=== PATIENT | female | born 1970 | race Caucasian/White ===

== ENCOUNTER → 2020-06-29 13:06 | Outpatient (CLI) | payer BC, SELFPAY ==
[2020-06-29 14:24] LABS: Basophils # 0.1 K/mm3 (0-0.2); Basophils % 0.6 % (0.1-2.0); Eosinophils # 0.1 K/mm3 (0.0-0.4); Eosinophils % 1.6 % (0.1-12.0); Hematocrit 47.2 % (37.0-47.0); Hemoglobin 15.4 g/dL (12.2-16.2); Lymphocytes # 1.9 K/mm3 (0.7-4.5); Lymphocytes % 24.4 % (10-50); Mean Corpuscular HGB Conc 32.5 g/dL (31.8-35.4); Mean Corpuscular Hemoglobin 29.5 pg (27.0-31.2); Mean Corpuscular Volume 90.7 fl (81-99); Mean Platelet Volume 8.6 fl (7.4-10.4); Monocytes # 0.5 K/mm3 (0.1-1.0); Monocytes % 5.8 % (1.7-9.3); Neutrophils # 5.3 K/mm3 (1.8-7.8); Neutrophils % 67.5 % (37.0-80.0); Platelet Count 348 K/mm3 (142-424); Red Blood Count 5.21 M/mm3 (4.20-5.40); Red Cell Distribution Width 13.8 % (11.5-17.5); White Blood Count 7.8 K/mm3 (4.8-10.8)
[2020-06-29 15:23] LABS: Chloride 105 mmol/L (98-107)
[2020-06-29 15:24] LABS: Potassium 4.1 mmoL/L (3.5-5.1); Sodium 140 mmol/L (136-145)
[2020-06-29 15:26] LABS: Alanine Aminotransferase 17 U/L (12-78); Albumin Level 4.6 g/dl (3.5-5.0); Albumin/Globulin Ratio 1.2 (1.1-1.8); Alkaline Phosphatase 67 U/L (38-126); Anion Gap 11.1 mEq/L (5-15); Aspartate Amino Transferase 24 U/L (14-36); Blood Urea Nitrogen 16 mg/dl (7-17); Carbon Dioxide 28 mmol/L (22.0-30.0); Cholesterol 223 mg/dl (140-200); Estimated Glomerular Filt Rate 75 ml/min (>60); GFR (African American) 91 ML/MIN (>60); Globulin 3.8 g/dL (1.3-3.2); Total Protein,Serum 8.4 g/dl (6.3-8.2); Triglycerides 127 mg/dl (30-150); VLDL Cholesterol 25 mg/dL (0-40)
[2020-06-29 15:27] LABS: Calcium 9.8 mg/dl (8.4-10.2); Chol/HDL Ratio 4.1 (1-3.5); Glucose 81 mg/dl (74-100); HDL Cholesterol 55 mg/dl (40-60)
[2020-06-29 15:38] LABS: Direct LDL Cholesterol 134.33 mg/dL (100-129)
[2020-06-29 15:43] LABS: Free T4 (Free Thyroxine) 1.06 ng/dl (0.78-2.19)
[2020-06-29 15:44] LABS: 25-OH Vitamin D, Total 62.2 ng/mL (30-100)
[2020-06-29 15:57] LABS: Thyroid Stimulating Hormone 2.45 uIU/mL (0.465-4.68)
[2020-07-01 10:20] LABS: Triiodothyronine (T3) Free 2.5 pg/mL (2.0-4.4)
[2020-07-01 14:49] LABS: Insulin Level Total 15.2 uIU/mL (2.6-24.9)
== END ==
DX: E03.9 Hypothyroidism, unspecified (principal); E66.9 Obesity, unspecified; Z68.30 Body mass index [BMI] 30.0-30.9, adult
CPT/HCPCS: 36415; 80053; 80061; 82306; 83036; 83525; 84439; 84443; 84481; 85025

== ENCOUNTER 2023-11-07 10:58 | Outpatient (CLI) | payer BC, SELFPAY | END 2023-11-07 23:59 | disposition home or self-care (01) | LOC: RAD 10:58 | PROVIDERS: PCP Obstetrics & Gynecology; Visit Provider Obstetrics & Gynecology | DX: Z12.31 Encounter for screening mammogram for malignant neoplasm of breast (principal) | CPT/HCPCS: 77063; 77067 ==

== ENCOUNTER 2024-01-30 06:29 | Day surgery (SDC) | payer BC, SELFPAY ==
[2024-01-29 11:36] VITALS: BMI 31.6
[2024-01-30] VITALS (8 sets, daily range): BP systolic 111–122; BP diastolic 64–86; PULSE 75–91; RESP 16–18; TEMP 36.2–36.7; O2SAT 95–100
[2024-01-30] MEDS: LACTATED RINGERS 1000ML 1,000 ML 100 ML IV (06:52)
--- NOTE | 2024-01-30 07:25 | P.PNANES_ITS ---
[facility] Disclaimer: The information contained in this section may have been updated after the patient was seen, as this information can be updated by other users. Medical History Hypothyroidism Vasomotor symptoms due to menopause Surgical History History of dental surgery History of Family History Other Heart attack Hypertension Stroke Social History (Updated 01/30/24 @ 06:45 by Abril Garibay RN) Smoking Status: Never smoker alcohol intake: never substance use type: denies use current occupational status: employed Travel in the last 8 weeks: None caffeine: Yes [facility] Anesthesia Checklist Patient Identification Patient Identification: Arm Band, Family and Verbal (Name & ) Structural Data Admitted From: Home Planned Operative Procedure/s: Colonoscopy Consent for Planned Operative Procedure(s) Verified: Yes Verified Documents: Surgical Consent and History and Physical NPO Status Verified Time NPO: 01:00 Additional verifications Patient : No Anesthesia Reactions: No Cardiovascular Assessment Heart Sounds: S1 & S2 Pulse Rhythm: Irregular Peripheral Edema: No Airway Assessment Mallampati Score:: Class II C-Spine Mobility Assessed: Yes (FROM) TMJ Mobility Assessed: Yes Dentition: Good Dentition (Nothing loose per pt.) Neurological Assessment Level of Consciousness: Awake, Alert, Appropriate and Follows Commands Hx Seizures: No Numbness or tingling in extremities: No Anesthesia Plan Anesthesia Risk discussed: Yes Anesthesia Plan: Verified ASA Class: II Anesthesia Type: MAC
--- NOTE | 2024-01-30 08:08 | P.PCN_ITS ---
Procedure: Date: 01/30/24 Patient Date of :: 1970 Procedure Performed:: Colonoscopy Indications:: Screening Performing Provider:: Ino Bowden MD Referring Provider:: . Sedation:: Monitored anesthesia care Procedure:: After informed consent was obtained the patient was taken to the endoscopy suite. Sedation ensued after the patient was transferred to the left lateral decubitus position. Pulse, blood pressure, and oxygen saturation were monitored throughout the procedure. Digital rectal exam revealed no significant abnormality. The colonoscope was placed in position. The entire colon was eval uated. The colonoscope was carefully removed and the patient was transferred to recovery in stable condition. Please see findings and specimens below for detail. Findings:: Bowel preparation poor Fairly profound spasticity/lack of relaxation Significant tortuosity Specimens:: None Recommendations:: Repeat colonoscopy in 6-12 months with extended/alternate bowel preparation Complications:: Poor bowel preparation Estimated blood obtained (mL): 0 Colonoscopy Component Colonoscopy Component Was a colonoscopy performed during today's procedure?: Yes Recommended follow up colonoscopy of at least 10 years?: No If no, follow up colonoscopy recommended in ___ years?: (See above) Reason for not recommending >/= 10 yr follow-up interval?: (See above)
--- NOTE | 2024-01-30 08:13 | P.PNANES_ITS ---
[facility] Anesthesia Record Part I Anesthesia Record I Intake, IV Amount: 300 Hydration: Adequate Estimated blood loss (mL): 0 Urine output (mL): 0 Blood Products used (#): none Blood Pressure: 115/71 SaO2: 95 Pulse Rate: 88 Airway Patency: Patent Respiratory Rate: 16 Temperature: 97.6 F Patient is:: Drowsy and Stable Stable to PACU at:: 08:13
== END 2024-01-30 08:50 | disposition home or self-care (01) ==
PROVIDERS: PCP Internal Medicine; Visit Provider Surgery
PROC: 0DJD8ZZ Inspection of Lower Intestinal Tract, Via Natural or Artificial Opening Endoscopic (ICD-10-PCS; CPT 45378; principal; 2024-01-30 07:30)
DX: Z12.11 Encounter for screening for malignant neoplasm of colon (principal)
CPT/HCPCS: 45378; J2704; J7120

== ENCOUNTER 2024-09-12 07:37 | Outpatient (CLI) | payer BC, SELFPAY ==
[2024-09-12 08:57] LABS: Free T4 (Free Thyroxine) 0.96 ng/dl (0.78-2.19)
[2024-09-12 09:11] LABS: Thyroid Stimulating Hormone 2.54 uIU/mL (0.465-4.68)
[2024-09-13 03:36] LABS: Triiodothyronine (T3) Total 118 ng/dL (71-180)
== END 2024-09-12 23:59 | disposition home or self-care (01) ==
LOC: LAB 07:38
PROVIDERS: PCP Internal Medicine; Visit Provider Internal Medicine
DX: E03.9 Hypothyroidism, unspecified (principal)
CPT/HCPCS: 36415; 84439; 84443; 84480

== ENCOUNTER 2025-04-01 11:50 | Outpatient (CLI) | payer BC, SELFPAY ==
--- OUTSIDE RECORDS SUMMARY | 2025-04-01 11:52 | XMS_ITS | Encounter Summary ---
[facility] Address [address] [place] [address] Care Team Providers Care Water Tender Name Role Phone Deborah Pandya APRN Primary Care Provider + [phone] Reason for Visit * Reason Onset Date Comments Med Refill 05/05/2023 Encounter Details Date Type Department Care Team (Late st Contact Info) Description 05/05/2023 Refill [facility] [address] [place] [address] Monica Bernal MD [address] [place] [address] Social History Tobacco Use Types Packs/Day Years Used Date Smoking Tobacco: Never Smokeless Tobacco: Never Alcohol Use Standard Drinks/Week Comments Yes 0 (1 standard drink = 0.6 oz pur e alcohol) Rare occasions AUDIT-C Answer Date Recorded Q1: How often do you have a drink containing alc ohol? 2-4 times a month 08/10/2020 Average Number of Drinks Not on file 021 Frequency of Binge Drinking Not on file 07/21 Comments No Sex and Gender Information Value Date Recorded Sex Assigned at Female 08/21/2024 8:02 AM EST Legal Sex Female 11:04 AM EDT Gender Identity Not on file Sexual Orientation Not on file documented as of this encounter Plan of Treatment Not on file documented as of this encounter Visit Diagnoses Not on filedocumented in this encounter Care Teams Water Tender Relationship Specialty Start Date End Date Deborah Pandya APRN [address] [place] [id number] PCP - General Family Medicine 07/09/18 documented as of this encounter
--- OUTSIDE RECORDS SUMMARY | 2025-04-01 11:52 | XMS_ITS | Encounter Summary ---
[facility] Address [address] [place] [address] Care Team Providers Care Staff Design Engineer Name Role Phone Deborah Pandya APRN Primary Care Provider + [phone] Reason for Visit * Reason Comments Med Refill Encounter Details Date Type Department Care Team (Late st Contact Info) Description 07/15/2024 Refill [facility] [address] [place] [address] Monica Bernal MD [address] [place] [address] Social History Tobacco Use Types Packs/Day Years [...] on filedocumented in this encounter Care Teams Staff Design Engineer Relationship Specialty Start Date End Date Deborah Pandya APRN [address] [place] [id number] PCP - General Family Medicine 07/09/18 documented as of this encounter
--- OUTSIDE RECORDS SUMMARY | 2025-04-01 11:52 | XMS_ITS | Clinical Summary ---
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 Take one white capsule with Breakfast, and one white capsule with dinner. Active Cholecalciferol (VITAMIN D3) 5000 units capsule capsule Take 1 capsule by mouth Daily. Active Insulin Pen Needle 32G X 4 MM miscIndications:Ob esity, Class I, BMI 30-34.9 1 Each/1.7m2 Daily. 100 each 1 04/24/20 19 Active Additional Information Patient not taking.Reported on 07/24/2024 Multiple Vitamins-Minerals (MULTIVITAMIN WITH MINERALS) tablet tablet Take 1 tablet by mouth Daily. Active [place]-3 Fatty Acids (FISH OIL) 1000 MG capsule capsule Take by mouth Daily With Breakfast. Active levothyroxine (SYNTHROID, LEVOTHROID) 50 MCG tablet Take 1 tablet by mouth Daily. 30 tablet 07/04/19 24 Active estradiol (ESTRACE) 1 MG tablet Take 1 tablet by mouth Daily. Active Progesterone (PROMETRIUM) 100 MG capsule Take 1 capsule by mouth Daily. Active Thyroid (ARMOUR THYROID) 60 MG PO tabletIndications: Hypothyroidism, unspecified type Take 1 tablet by mouth Daily. Take daily at least one hour before or two hours after eating 30 tablet 11/08/19 24 Active ondansetron ODT (ZOFRAN-ODT) 8 MG disintegrating tabletIndications: Obesity (BMI 30-39.9) Place 1 tablet on the tongue Every 8 (Eight) Hours As Needed for Nausea or Vomiting. 30 tablet 1 12/18/2023 1:46 PM EDT 12/18/19 24 Active phentermine (ADIPEX-P) 37.5 MG tabletIndications: Overweight (BMI 25.0-29.9) Take 1 tablet by mouth Every Morning Before Breakfast. 14 tablet 08/22/19 25 Active Tirzepatide-Weight Management (Zepbound) 5 MG/0.5ML solution auto-injectorIndic ations:Overweight (BMI 25.0-29.9) Inject 0.5 mL under the skin into the appropriate area as directed 1 (One) Time Per Week. 2 mL 1 08/22/19 25 Active Active Problems Problem Noted Date Diagnosed Date Insulin resistance 07/08/2020 Overview (03/26/2024): KARINA IR 1.2, Insulin 5 (03/2024); Labs 06/2020: Fasting Insulin 15.2 combined with glucose of 81 gives a KARINA-IR score of 3.0 Assessment & Plan (06/26/2024 7:27 AM EST): Continue low carb diet, regular physical activity, and weight reduction of 10- 15%. Assessment & Plan (05/27/2024 7:49 AM EST): Continue ow carb diet, regular physical activity, and weight reduction of 10- 15%. Assessment & Plan (04/30/2024 7:20 AM EST): Continue to follow low carb diet, regular physical activity, and weight reduction of 10-15%. Metformin stopped last visit due to noncompliance. Continue Zepbound. Assessment & Plan (03/26/2024 9:01 AM EDT): Improving with weight reduction and Metformin. Continue current plan. She has not been taking metformin consistently. Stop, consider re initiation if indicated. Continue Zepbound. Assessment & Plan (02/23/2024 9:02 AM EDT): Low carb diet, regular physical activity, and weight reduction of 10-15%. Assessment & Plan (01/22/2024 8:31 AM EDT): Continue low carb diet, regular physical activity, and weight reduction of 10- 15%. Hypothyroidism 07/04/2018 Overview (03/26/2024): TSH 4.3 (03/2024); Rx levothyroxine & armour from [facility] Assessment & Plan (03/26/2024 9:00 AM EDT): Strongly encouraged to follow with primary care regarding this recent reading. She is taking [place] and Synthroid which was historically managed by Dr. Bernal. I advised on our initial visit that she should have primary care take over management of this. Will recheck TSH May 2024, if abnormal refer to pcp for management Assessment & Plan (12/18/2023 12:20 PM EDT): On [place] and Synthroid, TSH soon, advised this would be better managed by PCP. Further recommendation pending lab value. Assessment & Plan (11/08/2023 11:56 AM EDT): Check TSH/T4. Refill [place] thyroid, titrate if needed. Assessment & Plan (02/24/2023 1:49 PM EDT): Recheck TSH, T4, refill levothyroxine and [place] thyroid she is already on. Assessment & Plan (02/17/2021 9:54 AM EDT): Patient had labs drawn at external lab but they are not scanned into our system. She will request that these get sent to us JASE, in particular looking at thyroid panel Assessment & Plan (01/20/2021 8:58 AM EDT): --Continue medications as prescribed --Sent lab paperwork, needed for thyroid levels. States she had these done externally but they have not been seen in our office. She plans to fax them to us. Assessment & Plan (12/24/2020 9:40 AM EDT): Pt does not required refill at this time Assessment & Plan (11/19/2020 9:33 AM EDT): --Lab report sent via mail to be completed prior to next apt. Assessment & Plan (10/19/2020 9:57 AM EDT): --Plan to get thyroid labs at next appointment Hyperlipidemia 07/04/2018 Overview (07/24/2024): Ldl 120 (03/2024); LDL 131 (06/2022); Lab due September 2024 Assessment & Plan (08/21/2024 7:23 AM EST): Chronic elevated, improving with lifestyle changes and weight loss. Continue lifestyle changes. Lab due September. Assessment & Plan (07/24/2024 7:12 AM EST): Continue lifestyle changes, weight reduction, lab due September 2024 Assessment & Plan (06/26/2024 7:27 AM EST): Elevated, continue current plan with weight reduction, lifestyle modifications. Lab due September 2024 Assessment & Plan (04/30/2024 7:20 AM EST): Lipid abnormalities are improving with treatment Plan: Continue lifestyle changes, weight reduction. Weight Loss encouraged Patient Treatment Goals: LDL goal is under 100 Followup in 1 year. Assessment & Plan (03/26/2024 7:16 AM EDT): Lipid abnormalities are stable Plan: Continue lifestyle modifications, weight reduction. Weight Loss encouraged Patient Treatment Goals: LDL goal is under 100 Followup annually . Assessment & Plan (02/23/2024 9:20 AM EDT): Lipid abnormalities are stable Plan: Lifestyle modifications and weight reduction 5-15%. Weight Loss encouraged Patient Treatment Goals: LDL goal is under 100, Lipid prior to next visit at [facility] Followup in 6 months. Assessment & Plan (01/22/2024 8:30 AM EDT): Lipid abnormalities are stable Plan: Lifestyle modifications, weight reduction. Weight Loss encouraged Patient Treatment Goals: LDL goal is under 100 Followup when fasting . Assessment & Plan (12/18/2023 12:21 PM EDT): Lipid abnormalities are stable Plan: Lifestyle modifications, weight reduction. Counseled patient on lifestyle modifications to help control hyperlipidemia. Weight Loss encouraged Patient Treatment Goals: LDL goal is under 100 Followup when fasting prior to next scheduled visit . History of vitamin D deficiency 07/04/2018 Overview (12/14/2023): Vit D 46 (06/2022) Assessment & Plan (12/18/2023 12:20 PM EDT): Lab. Further recommendation pending result. Overweight (BMI 25.0-29.9) 07/04/2018 Overview (07/24/2024): Start weight 252 (2019); Weight 01/2021: 193 -- 1st Goal 189 (reached 05/2021); 2nd goal 184 (reached 03/2022); Treatment goal 179 lb (reached 06/2023) History of obesity BMI > 30 Current medication Rx [facility]: Zepbound ( start 12/18/23 ), P37 (start taper 03/2024- failed taper 07/2024), armor, levothyroxine (prescribed at [facility] but advised to have PCP follow) Rx history: P37 (taper started 03/2024); Wegovy (09/2022, stopped due to supply issue and SE diarrhea); (02/17) phentermine: 37.5 failed taper x 1 sympathomimetics (02/2020)(D/C'd 07/2022); 05/2020 Saxenda added Options: phendimetrazine 35 BID --tolerated well Rx: caution: Metformin (side effect, but does not remember what), Topamax (not efficacious, only took one week), DiuCaps (not efficacious) Comorbidity: Hyperlipidemia, insulin resistance Paper food journal Exercise: treadmill/gym/weights Pancreatitis: No Glaucoma: No Headaches: No HTN: No Heart palpitations: No Thyroid C cell cancer: No MEN syndrome personal or family hx: No Nephrolithiasis: No Gallbladder disease: No Diabetic Retinopathy: No Gastroparesis: No Small bowel obstruction: No Seizures: No Calories 7020-1390 Protein 95-118g Water 100 oz Assessment & Plan (08/21/2024 8:50 AM EST): Patient's (Body mass index is 29.23 kg/m .) indicates that they are overweight with health conditions that include impaired fasting glucose and dyslipidemias . Weight is improving with treatment. BMI is above average; BMI management plan is completed. We discussed portion control, increasing exercise, pharmacologic options including phentermine, zepbound, and an kermit- based approach such as Colingo Pal or Lose It. I have instructed the patient to continue with pursuit of medical weight loss as a part of this program. Patient does meet criteria for use of anorectics at this time as BMI > 27 with coexisting, hyperlipidemia, impaired fasting glucose, and is not at treatment goal. The current plan for this month includes: - 1 month f/u visit, she is down 3 lbs on zepbound, phentermine PRN - Continue current exercise efforts - Weight loss goal 4-6lbs this month - Continue to work on lifestyle behavioral changes - Adjust macronutrients as discussed. Bring food journal to next visit for review - continue zepbound 5 mg weekly injection for weight loss - restart phentermine 1/2 tablet 18.75 mg daily for appetite suppression given recent increased appetite. - target weight goal 179 lb, you are close to this goal As discussed continue good habits with exercise. Focus on protein intake. Log food and bring to next visit so we can fully evaluate macronutrients. Assessment & Plan (07/24/2024 8:52 AM EST): Patient's (Body mass index is 29.57 kg/m .) indicates that they are overweight with health conditions that include impaired fasting glucose and dyslipidemias . Weight is worsening. BMI is above average; BMI management plan is completed. We discussed portion control, increasing exercise, pharmacologic options including zepbound, has only been taking phentermine as needed, and an kermit-based approach such as Marvel or Lose It. I have instructed the patient to continue with pursuit of medical weight loss as a part of this program. Patient does meet criteria for use of anorectics at this time as BMI > 27 with coexisting and hyperlipidemia. The current plan for this month includes: - 1 month f/u visit, she is up 5 lbs on zepbound 5 mg, phentermine PRN - Continue current exercise efforts, get back to previous pattern/habits - Weight loss goal 4-6lbs this month - Continue to work on lifestyle behavioral changes - Adjust macronutrients as discussed. Bring food journal to next visit for review - continue zepbound 5 mg for weight loss - restart probiotic, continue over the counter gas x as needed, get back to drinking water - continue phentermine as needed at this time, she is taking about 1 time weekly at the end of week from time she injected, this is when hunger is highest - target goal 179 lb Assessment & Plan (06/26/2024 8:49 AM EST): Patient's (Body mass index is 28.74 kg/m .) indicates that they are overweight with health conditions that include impaired fasting glucose and dyslipidemias . Weight is improving with treatment. BMI above average . We discussed portion control, increasing exercise, pharmacologic options including zepbound and phentermine, and an kermit-based approach such as Marvel or Lose It. I have instructed the patient to continue with pursuit of medical weight loss as a part of this program. Patient does meet criteria for use of anorectics at this time as BMI > 27 with coexisting, hyperlipidemia, this medication is indicated for [facility] use for management of obesity, and reached target weight . The current plan for this month includes: - 1 month f/u visit, she is down 6 lbs on zepbound, PRN phentermine - Continue current exercise efforts - Continue to work on lifestyle behavioral changes - Adjust macronutrients as discussed. Bring food journal to next visit for review - Continue to prioritize protein, fiber, and hydration. - decrease zepbound back to 5 mg given her significant indigestion, GI symptoms. She felt better on the 5 mg dose - continue intermittent use of phentermine as needed during our transition to lower zepbound dose - restart probiotic - will need fasting labs with follow up visit - target weight goal reached today at 179 lbs. Great work! Congrats on reaching your target weight goal. Get back to higher protein intake with lower zepbound dosing. Continue great efforts with weight maintenance. Assessment & Plan (05/27/2024 8:25 AM EST): Patient's (Body mass index is 29.99 kg/m .) indicates that they are obese (BMI >30) with health conditions that include impaired fasting glucose and dyslipidemias . Weight is improving with treatment. BMI is above average; BMI management plan is completed. We discussed portion control, increasing exercise, pharmacologic options including zepbound, phentermine, and an kermit-based approach such as Marvel or Lose It. I have instructed the patient to continue with pursuit of medical weight loss as a part of this program. Patient does meet criteria for use of anorectics at this time as BMI >30 , body fat percentage >30%, hyperlipidemia, impaired fasting glucose, and is not at treatment goal. The current plan for this month includes: - 1 month f/u visit, she is down 3 lbs with zepbound, tapered from phentermine - Weight loss goal 4-6lbs this month - Adjust macronutrients as discussed. Bring food journal to next visit for review - Continue Zepbound 10 mg for weight loss - As discussed ok to proceed with Phentermine as needed at this time. If you continue to struggle and need to reincorporate advised to reach out for further instruction - Start over the counter gas-x for bloating, stop drinking through straw - treatment goal 179 lb Continue great efforts at exercise, reaching protein goal. Minimize sweets, carbs especially days surrounding holiday. Great work! Assessment & Plan (04/30/2024 8:46 AM EST): Patient's (Body mass index is 30.36 kg/m .) indicates that they are obese (BMI >30) with health conditions that include impaired fasting glucose and dyslipidemias . Weight is improving with treatment. BMI is above average; BMI management plan is completed. We discussed portion control, increasing exercise, pharmacologic options including phentermine and zepbound, and an kermit-based approach such as Marvel or Lose It. I have instructed the patient to continue with pursuit of medical weight loss as a part of this program. Patient does meet criteria for use of anorectics at this time as BMI >30 , hyperlipidemia, and is not at treatment goal. The current plan for this month includes: - 1 month f/u, she is down 6 lbs with zepbound, tapering phentermine - Continue to work on lifestyle behavioral changes - Continue nutrition focus - Continue to prioritize protein, fiber, and hydration. - Continue phentermine only as needed at this time, plan to fully discontinue. May reinitiate if indicated. - Continue Zepbound 10 mg for weight loss - Treatment goal 179 lb.You are very close to meeting this goal, 9 lbs away. Continue excellent efforts! Continue workouts, may increase calories/carbs on these days with focus on protein Assessment & Plan (03/26/2024 9:03 AM EDT): Patient's (Body mass index is 31.41 kg/m .) indicates that they are obese (BMI >30) with health conditions that include impaired fasting glucose and dyslipidemias . Weight is improving with treatment. BMI is above average; BMI management plan is completed. We discussed portion control, increasing exercise, pharmacologic options including zepbound, metformin and phentermine, and an kermit-based approach such as Colingo Pal or Lose It. I have instructed the patient to continue with pursuit of medical weight loss as a part of this program. Patient does meet criteria for use of anorectics at this time as BMI >30 , body fat percentage >30%, hyperlipidemia, impaired fasting glucose, and is not at treatment goal. The current plan for this month includes: - 1 month f/u visit and she is down 5 lbs on zepbound, phentermine and metformin - Continue great efforts with exercise - Continue to prioritize protein, fiber, and hydration. - Continue phentermine for weight loss, Lonnie VILLAR reviewed (start rapid taper, see below) - Continue Zepbound 10 for weight loss - start OTC gas x for bloating/gas - Stop Metformin as she has not been taking consistently - Start Phentermine taper, see instructions below, also copy given to patient - Treatment goal 172 lb - Treatment goal 172 lb [facility] Accelerated Wean (Patients will receive 28 pills) Weeks 1-2 (Take 2 days, Skip 1 day) Weeks 3-4 (Take 1 day, Skip 1 day) Weeks 5-6 (Take 1 day, Skip 2 days. This step will continue until all of your medication is gone.) Monday Week 1 Take Take Skip Take Take Skip Take Week 2 Take Skip Take Take Skip Take Take Week 3 Skip Take Skip Take Skip Take Skip Week 4 Take Skip Take Skip Take Skip Take Week 5 Skip Skip Take Skip Skip Take Skip Week 6 Skip Take Skip Skip Take Skip Skip Please Note, the accelerated wean is ONLY for weight loss medications such as Phentermine, Phendimetrazine, and Diethylpropion. Assessment & Plan (02/23/2024 9:22 AM EDT): Patient's (Body mass index is 32.14 kg/m .) indicates that they are obese (BMI >30) with health conditions that include dyslipidemias . Weight is improving with treatment. BMI is above average; BMI management plan is completed. We discussed portion control, increasing exercise, pharmacologic options including phentermine and zepbound, and an kermit-based approach such as Colingo Pal or Lose It. I have instructed the patient to continue with pursuit of medical weight loss as a part of this program. Patient does meet criteria for use of anorectics at this time as BMI >30 , body fat percentage >30%, hyperlipidemia, and is not at treatment goal. The current plan for this month includes: - 5 week f/u visit and she is down about 3 lbs with use of zepbound which was increased to 5 mg last visit - It is appropriate to continue anorectic medications as prescribed at this time - Continue to work on lifestyle behavioral changes - Adjust macronutrients as discussed. Bring food journal to next visit for review - Increase Zepbound to 7.5 mg weekly injection for weight loss, advised to report adverse side effects - Continue Phentermine 37.5 for appetite suppression, JIAN/Lonnie reviewed - Treatment goal 172 lb Assessment & Plan (01/22/2024 9:30 AM EDT): Patient's (Body mass index is 32.78 kg/m .) indicates that they are obese (BMI >30) with health conditions that include dyslipidemias . Weight is unchanged. BMI is above average; BMI management plan is completed. We discussed portion control, increasing exercise, and an kermit-based approach such as Colingo Pal or Lose It. I have instructed the patient to continue with pursuit of medical weight loss as a part of this program. Patient does meet criteria for use of anorectics at this time as BMI >30 , body fat percentage >30%, hyperlipidemia, and is not at treatment goal. The current plan for this month includes: - 1 month f/u visit and she is down about 5 lbs with use of phentermine and zepbound which was added last visit - Continue current exercise efforts, walking and consider incorporating strength training - Continue nutrition focus - Adjust macronutrients as discussed. Bring food journal to next visit for review - Continue Zepbound, will start 5 mg, advised to call office in 2 weeks to inform of side effects and at that time will consider sending the next months dose. She still needs labs, will get prior to next visit - Continue Phentermine 37.5, consider taper with higher dosing of zepbound - Treatment goal 272 lb Assessment & Plan (12/18/2023 12:19 PM EDT): Patient's (Body mass index is 33.65 kg/m .) indicates that they are obese (BMI >30) with health conditions that include dyslipidemias . Weight is worsening. BMI is above average; BMI management plan is completed. We discussed portion control, increasing exercise, and an kermit-based approach such as Marvel or Lose It. I have instructed the patient to continue with pursuit of medical weight loss as a part of this program. Patient does meet criteria for use of anorectics at this time as BMI >30 and hyperlipidemia. The current plan for this month includes: - 1 month f/u, patient has seen Dr. Bernal historically, she has gained about 5 lbs in the last month, on phentermine - Add resistance training - Weight loss goal 4-6lbs this month - Adjust macronutrients as discussed, focus on increasing fiber in diet. Bring food journal to next visit for review - Continue Phentermine 37.5 daily once UDS comes back, [facility] site down unable to review - Start Zepbound 2.5, sent to [facility] pharmacy, I/R/B/SE discussed and per AVS - UDS today, once back send P37 - Labs future at [facility] fasting prior to next visit - Treatment goal 148-272 lb Assessment & Plan (11/08/2023 11:53 AM EDT): Patient's (Body mass index is 32.77 kg/m .) indicates that they are obese (BMI >30) with health conditions that include none . Weight is improving with lifestyle modifications. BMI is above average; BMI management plan is completed. We discussed portion control and increasing exercise. I have instructed the patient to continue with pursuit of medical weight loss as a part of this program. Patient does meet criteria for use of anorectics at this time as BMI >30 , body fat percentage >30%, is not at treatment goal, and this medication is indicated for [employer] use for management of obesity. The current plan for this month includes: - Continue current exercise efforts - Weight loss goal 4-6lbs this month - Continue to work on lifestyle behavioral changes - Continue nutrition focus - Adjust macronutrients as discussed. Bring food journal to next visit for review - Continue to prioritize protein, fiber, and hydration. Continue metformin/phentermine. Will try Zepbound since Wegovy unavailable. Next month will have option of compounded semaglutide if interested. Try freezing her fish oil to decrease fish burps. Decrease carbs to 75 net or less. Good calories/protein. Assessment & Plan (09/13/2023 9:39 AM EDT): Patient's (Body mass index is 32.93 kg/m .) indicates that they are obese (BMI >30) with health conditions that include none . Weight is improving with lifestyle modifications. BMI is above average; BMI management plan is completed. We discussed portion control and increasing exercise. I have instructed the patient to continue with pursuit of medical weight loss as a part of this program. Patient does meet criteria for use of anorectics at this time as BMI >30 , body fat percentage >30%, is not at treatment goal, and this medication is indicated for [employer] use for management of obesity. The current plan for this month includes: - Adjust exercise as discussed - Weight loss goal 4-6lbs this month - Continue to work on lifestyle behavioral changes - Continue nutrition focus - Adjust macronutrients as discussed. Bring food journal to next visit for review - Continue to prioritize protein, fiber, and hydration. Still waiting on Wegovy. Try [facility]. Refill phentermine. Continue metformin. Add leg strength. Continue excellent effort with logging and macros. Assessment & Plan (08/09/2023 3:05 PM EST): Patient's (Body mass index is 33.73 kg/m .) indicates that they are obese (BMI >30) with health conditions that include dyslipidemias . Weight is improving with lifestyle modifications. BMI is above average; BMI management plan is completed. We discussed portion control and increasing exercise. I have instructed the patient to continue with pursuit of medical weight loss as a part of this program. Patient does meet criteria for use of anorectics at this time as BMI >30 , body fat percentage >30%, hyperlipidemia, is not at treatment goal, and this medication is indicated for [facility] use for management of obesity. The current plan for this month includes: - Adjust exercise as discussed - Weight loss goal 4-6lbs this month - Continue to work on lifestyle behavioral changes - Continue nutrition focus - Adjust macronutrients as discussed. Bring food journal to next visit for review - Continue to prioritize protein, fiber, and hydration. OFI: Continue to log. Strive for accuracy. Has Wegovy ordered, PA seems to be in order, but pharmacy doesn't have starting dose. Pt to f/u with them. Let me know if I can facilitate or send elsewhere. Refill phentermine. Continue metformin. While dealing with hip injury, focus on upper body and core. Assessment & Plan (07/07/2023 11:54 AM EST): Patient's (There is no height or weight on file to calculate BMI.) indicates that they are obese (BMI >30) with health conditions that include dyslipidemias . Weight is improving with lifestyle modifications. BMI is above average; BMI management plan is completed. We discussed portion control and increasing exercise. I have instructed the patient to continue with pursuit of medical weight loss as a part of this program. Patient does meet criteria for use of anorectics at this time as BMI >30 , body fat percentage >30%, hyperlipidemia, is not at treatment goal, and this medication is indicated for [facility] use for management of obesity. The current plan for this month includes: - Adjust exercise as discussed - Weight loss goal 4-6lbs this month - Continue to work on lifestyle behavioral changes - Continue nutrition focus - Adjust macronutrients as discussed. Bring food journal to next visit for review - Continue to prioritize protein, fiber, and hydration. Rx Wegovy to [facility]. She did well on Wegovy before, but had too many GI side effects at 2.4 dose. Cont metformin until gLP-1 available, and refill phentermine. Doing great with exercise, encouraged to log diligently to make sure getting enough protein and appropriate calorie deficit. Assessment & Plan (06/07/2023 10:21 AM EST): Patient's (There is no height or weight on file to calculate BMI.) indicates that they are obese (BMI >30) with health conditions that include dyslipidemias . Weight is improving with lifestyle modifications. BMI is above average; BMI management plan is completed. We discussed portion control and increasing exercise. I have instructed the patient to continue with pursuit of medical weight loss as a part of this program. Patient does meet criteria for use of anorectics at this time as BMI >30 , body fat percentage >30%, hypercholesterolemia, is not at treatment goal, and this medication is indicated for [facility] use for management of obesity. The current plan for this month includes: - Continue current exercise efforts - Weight loss goal 4-6lbs this month - Continue to work on lifestyle behavioral changes - Continue nutrition focus - Adjust macronutrients as discussed. Bring food journal to next visit for review - Continue to prioritize protein, fiber, and hydration. Had only 1 pound weight loss, despite excellent diet recall. Encourage 3-5 days per week cardio, add strength training. Saxenda wasn't available. Will rx Wegovy starting dose. Start metformin in the meantime for insulin resistance. Continue phentermine. Assessment & Plan (05/03/2023 9:39 AM EST): Patient's (There is no height or weight on file to calculate BMI.) indicates that they are obese (BMI >30) with health conditions that include dyslipidemias . Weight is improving with lifestyle modifications. BMI is above average; BMI management plan is completed. We discussed portion control and increasing exercise. I have instructed the patient to continue with pursuit of medical weight loss as a part of this program. Patient does meet criteria for use of anorectics at this time as BMI >30 , body fat percentage >30%, hyperlipidemia, is not at treatment goal, and this medication is indicated for [employer] use for management of obesity. The current plan for this month includes: - Continue current exercise efforts - Weight loss goal 4-6lbs this month - Continue to work on lifestyle behavioral changes - Continue nutrition focus - Adjust macronutrients as discussed. Bring food journal to next visit for review - Continue to prioritize protein, fiber, and hydration. Will attempt starting dose of Saxenda. Refill phentermine. If can't obtain Saxenda, could add metformin. Assessment & Plan (03/31/2023 3:48 PM EDT): Patient's (There is no height or weight on file to calculate BMI.) indicates that they are obese (BMI >30) with health conditions that include dyslipidemias . Weight is improving with lifestyle modifications. BMI is above average; BMI management plan is completed. We discussed portion control and increasing exercise. I have instructed the patient to continue with pursuit of medical weight loss as a part of this program. Patient does meet criteria for use of anorectics at this time as BMI > 27 with coexisting, BMI >30 , and this medication is indicated for [facility] use for management of obesity. The current plan for this month includes: - Continue current exercise efforts - Weight loss goal 4-6lbs this month - Continue to work on lifestyle behavioral changes - Continue nutrition focus - Adjust macronutrients as discussed. Bring food journal to next visit for review - Continue to prioritize protein, fiber, and hydration. Doing well. Hopefully can restart Saxenda May or June when available. Refill phentermine. Assessment & Plan (02/24/2023 1:46 PM EDT): Patient's (There is no height or weight on file to calculate BMI.) indicates that they are obese (BMI >30) with health conditions that include dyslipidemias . Weight is improving with lifestyle modifications. BMI is above average; BMI management plan is completed. We discussed portion control and increasing exercise. I have instructed the patient to continue with pursuit of medical weight loss as a part of this program. Patient does meet criteria for use of anorectics at this time as BMI >30 , body fat percentage >30%, dysmetabolic syndrome, is not at treatment goal, and this medication is indicated for [facility] use for management of obesity. Continue nutritional focus and work towards new exercise FITT goal of: The current plan for this month includes: - Continue current exercise efforts - It is appropriate to continue anorectic medications as prescribed at this time - Weight loss goal 4-6lbs this month - Continue to work on lifestyle behavioral changes - Continue nutrition focus - Adjust macronutrients as discussed. Bring food journal to next visit for review - Continue to prioritize protein, fiber, and hydration. When I listened to her diet recall, it seems that protein intake is too low. Recommend watch protein closely on baritastic. Increase to 100 g/day. Strength training is good. Continue phentermine. Continue to hold GLP-1 (high dose was very poorly tolerated). Assessment & Plan (01/27/2023 9:52 AM EDT): Patient's (Body mass index is 33.64 kg/m .) indicates that they are obese (BMI >30) with health conditions that include dyslipidemias . Weight is worsening. BMI is above average; BMI management plan is completed. We discussed portion control and increasing exercise. Very bad reaction to 2.4 dose of Wegovy. Will hold completely for now. I would expect adverse effects of gastroparesis to wear off soon as Wegovy clears the system. One consideration is the formation of a bezoar, which may be explanation if her symptoms continue past 2 more weeks. Would dx with EGD. Possible GES if no bezoar. Would hold GLP-1 completely for now until symptoms 100% resolve., when restarting consider Saxenda after May. Will restart phentermine. I have advised her not to take it until hunger resolves. I think poor weight loss is from low protein/calories. Advise log every day on Baritastic to make sure macros/calories are appropriate. [id number] per day, 100 g/day protein. Assessment & Plan (12/28/2022 8:41 AM EDT): Patient's (Body mass index is 33.41 kg/m .) indicates that they are obese (BMI >30) with health conditions that include dyslipidemias . Weight is improving with lifestyle modifications. BMI is above average; BMI management plan is completed. We discussed portion control and increasing exercise. I have instructed the patient to continue with pursuit of medical weight loss as a part of this program. Patient does meet criteria for use of anorectics at this time as BMI >30 , hypercholesterolemia, dysmetabolic syndrome, and is not at treatment goal. Continue nutritional focus and work towards new exercise FITT goal of: The current plan for this month includes: adjust exercise as discussed, it is appropriate to continue anorectic medications as prescribed at this time, weight loss goal 4-6lbs this month, and continue to work on lifestyle behavioral changes Strongly encourage to start logging on baritastic. Since her weight has stalled, I think we are missing some variables to help her achieve her goals. Suspect protein is still low. Looking at 3 months ago BMR, it was ~1600 Calorie goal [id number] per day. Protein 90-100 g/day. Limits net carbs to 75 or less. 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 Refill Wegovy 2.4. Assessment & Plan (11/28/2022 4:05 PM EDT): Patient's (Body mass index is 33.09 kg/m .) indicates that they are obese (BMI >30) with health conditions that include dyslipidemias . Weight is unchanged. BMI is above average; BMI management plan is completed. We discussed portion control and increasing exercise. I have instructed the patient to continue with pursuit of medical weight loss as a part of this program. Patient does meet criteria for use of anorectics at this time as BMI >30 and hyperlipidemia. Continue nutritional focus and strength/cardio 3x per week. The current plan for this month includes: continue current exercise efforts, it is appropriate to continue anorectic medications as prescribed at this time, weight loss goal 4-6lbs this month, continue to work on lifestyle behavioral changes, and continue nutrition focus. Hair loss, no weight loss, and low protein on diet recall. Increase protein to 80-100. Ok to use paper diet log, but make a column for protein. At next office visit, it will be good to see what is fat percentage on our scale. We discussed the importance of protein in maintaining lean muscle mass. Increase Wegovy dose to 2.4 mg per week. Assessment & Plan (10/24/2022 2:17 PM EDT): Patient's (Body mass index is 33.09 kg/m .) indicates that they are obese (BMI >30) with health conditions that include dyslipidemias and insulin resistance . Weight is improving with treatment. BMI is above average; BMI management plan is completed. We discussed low calorie, low carb based diet program, portion control, increasing exercise, pharmacologic options including Wegovy and an kermit-based approach such as Colingo Pal or Lose It. --Increase Wegovy form 1mg to 1.7 --Continue to increase walking --Continue psyllium husk Assessment & Plan (09/26/2022 12:12 PM EDT): Patient's (Body mass index is 34.22 kg/m .) indicates that they are overweight with health conditions that include dyslipidemias and insulin resistance . Weight is worsening. BMI is is above average; BMI management plan is completed. We discussed low calorie, low carb based diet program, portion control, increasing exercise, pharmacologic options including wegovy and an kermit-based approach such as Colingo Pal or Lose It. -- Switch Saxenda to Wegovy. Starting this at 1mg Prior approval sent for Wegovy and prescription sent in. Advised that she these medicines should not be taken at the same time. Is getting Wegovy she can take Saxenda the last day prior to taking Wegovy. Advised that this is a once a week injection versus daily. -- Discussed the potential side effects of abruptly starting phentermine and advised to titrate as instructed in the future if ever stopping this medication again. -- Reviewed labs completed in June. Discussed restarting psyllium husk and advised this could be helpful for both weight loss and for her mildly elevated hyperlipidemia. Advised to always take with a full glass of water at minimum 8 ounces preferably more. Assessment & Plan (07/18/2022 2:24 PM EST): Patient's (Body mass index is 29.21 kg/m .) indicates that they are overweight with health conditions that include dyslipidemias and insulin resistance . Weight is improving with treatment. BMI is is above average; BMI management plan is completed. We discussed low calorie, low carb based diet program, portion control, increasing exercise, pharmacologic options including phentermine and Saxenda and an kermit-based approach such as Colingo Pal or Lose It. -- This is a follow-up visit and patient is around the same weight as she was approximately a month ago. --Continue Saxenda and phentermine. Refill sent in. --Labs were reviewed. Only abnormal was mildly elevated cholesterol levels. Discussed adding psyllium husk supplementation. Discussed titrating up from 2 tablets in the morning and 2 tablets in the evening (taken with a full glass of water) up to a maximum dose of 5 tablets in the morning and 5 tablets in the evening. An excellent primary care provider discuss the lab results. Message sent to staff to send a GameTube message with the lab results. --Goal to be into the 170s by next visit. Goal of 2-4lbs this month. Assessment & Plan (06/16/2022 8:58 AM EST): Patient's (Body mass index is 29.12 kg/m .) indicates that they are overweight with health conditions that include dyslipidemias and insulin resistance . Weight is improving with treatment. BMI is is above average; BMI management plan is completed. We discussed low calorie, low carb based diet program, portion control, increasing exercise, pharmacologic options including phentermine and Saxenda and an kermit-based approach such as Colingo Pal or Lose It. --This is a follow up visit and she is down 2.6lb since last office visit --Continue Saxenda and phentermine refill sent in. Refill on thyroid medications. -- Fasting labs ordered. She plans to get these fasting done at the [facility] facility of her choice. -- Refocus after the holidays in particular on her exercise, water and food choices. Currently is writing down her foods. Discussed the option of using the kermit [email or web address]. If she is interested in this she can download and bring to next office visit for us to set up. Perfectly okay to continue paper charting as well if that easier for her. -- Continue to focus on increasing and keeping our nonstarchy vegetables a main part of her diet. Goal of at least 3 of these a day. -- Currently is 180.4. Is seeing the 170s since high school per patient. Goal to be in the 170s by next office visit Assessment & Plan (05/16/2022 8:22 AM EST): Patient's (Body mass index is 29.54 kg/m .) indicates that they are overweight with health conditions that include dyslipidemias and insulin resistance . Weight is unchanged. BMI is is above average; BMI management plan is completed. We discussed low calorie, low carb based diet program, portion control, increasing exercise, pharmacologic options including Saxenda and phentermine and an kermit-based approach such as My[employer]ards[employer] Pal or Lose It. --Goal of gym to 4 days/week --Continue to explore the vegetables. --Continue and Saxenda and phentermine Assessment & Plan (04/11/2022 3:12 PM EDT): Patient's (Body mass index is 29.54 kg/m .) indicates that they are overweight with health conditions that include dyslipidemias and insulin resistance . Weight is improving with treatment. BMI is is above average; BMI management plan is completed. We discussed low calorie, low carb based diet program, portion control, increasing exercise, pharmacologic options including Phentermine and Saxenda and an kermit-based approach such as [employer] Pal or Lose It. --Gaol of gym at min 3x days week --Continue goal to increase starchy vegetables. --Continue Saxenda and phentermine. --Goal to be in 170s by Jose Carlos Assessment & Plan (03/10/2022 11:46 AM EDT): Patient's (Body mass index is 29.38 kg/m .) indicates that they are overweight with health conditions that include dyslipidemias and insulin resistance . Weight is improving with treatment. BMI is is above average; BMI management plan is completed. We discussed low calorie, low carb based diet program, portion control and pharmacologic options including phentermine, Saxenda. Assessment & Plan (02/10/2022 9:44 AM EDT): Patient's (Body mass index is 30.02 kg/m .) indicates that they are obese (BMI >30) with health conditions that include dyslipidemias and insulin resistance . Weight is improving with treatment. BMI is is above average; BMI management plan is completed. We discussed low calorie, low carb based diet program, portion control, increasing exercise and an kermit-based approach such as My[employer]ards[employer] Pal or Lose It. -- This is a follow-up visit and patient is down 2.5 pounds since last being seen around a month ago. She is very close to being outside of a obese BMI currently BMI is 30.0 to -- Currently is working on increasing her vegetable intake. Keep up this great effort. Also has been increasing her mindful movement and exercise. -- Has her wedding coming up next month at the end of February. She has been working hard to get at her goal of 180. -- Continue Saxenda and phentermine. Does not require a refill on Saxenda today. -- Has a comorbidity of hypothyroidism. Refills for that also sent in and TSH order placed to be done at the lab of her choice. Assessment & Plan (01/12/2022 3:54 PM EDT): Patient's (Body mass index is 30.42 kg/m .) indicates that they are obese (BMI >30) with health conditions that include dyslipidemias and insulin resistance . Weight is improving with treatment. BMI is is above average; BMI management plan is completed. We discussed low calorie, low carb based diet program, portion control, increasing exercise and an kermit-based approach such as MyDualog Pal or Lose It. Assessment & Plan (12/13/2021 1:53 PM EDT): Patient's (Body mass index is 30.51 kg/m .) indicates that they are obese (BMI >30) with health conditions that include dyslipidemias and insulin resistance . Weight is improving with treatment. BMI is is above average; BMI management plan is completed. We discussed low calorie, low carb based diet program, portion control and increasing exercise. -- This is a follow-up visit and patient was seen virtually due to staffing shortage. She is up around a pound since last office visit which was around 6 weeks ago. She did run short on medication and cut her phentermine in half for the last few days. Refill sent in. -- Has continue to focus on food modification keeping protein elevated carbs low and focusing on increasing her fruits and vegetables. Keep up this great effort -- Has her daughter's wedding this week and her wedding coming up in early fall and still reaching to reach her goal of 180. Assessment & Plan (10/28/2021 9:43 AM EDT): Patient's (There is no height or weight on file to calculate BMI.) indicates that they are obese (BMI >30) with health conditions that include dyslipidemias and insulin resistance . Weight is improving with treatment. BMI is is above average; BMI management plan is completed. We discussed low calorie, low carb based diet program, portion control and increasing exercise. --This is a video visit and --Has been increasing Assessment & Plan (09/30/2021 9:52 AM EDT): Patient's (Body mass index is 30.51 kg/m .) indicates that they are obese (BMI >30) with health conditions that include dyslipidemias and insulin resistance . Weight is improving with treatment. BMI is is above average; BMI management plan is completed. We discussed low calorie, low carb based diet program, portion control and increasing exercise. --This is a virtual follow up visit and she is even from last Month. --Continue Saxenda and phentermine. --Looks forward to walking with her walking group in the warmer weather. --Currently dealing with a lot of meopause symptoms and plans to reach out to OBGYN regarding medications to help symptoms. Assessment & Plan (08/30/2021 9:16 AM EDT): Patient's (There is no height or weight on file to calculate BMI.) indicates that they are obese (BMI >30) with health conditions that include dyslipidemias and insulin resistance . Weight is improving with treatment. BMI is is above average; BMI management plan is completed. We discussed low calorie, low carb based diet program, portion control and increasing exercise. --Looking forward to walking with group in park --Has been weight training. Continue to slowly increase this. --1/2-1lbs or 2-4 lbs this months. Assessment & Plan (08/02/2021 9:51 AM EST): Patient's (Body mass index is 30.83 kg/m .) indicates that they are obese (BMI >30) with health conditions that include dyslipidemias and insulin resistance . Weight is improving with treatment. BMI is is above average; BMI management plan is completed. We discussed low calorie, low carb based diet program, portion control and increasing exercise. --4-6 lbs this month goal this month --Has 2 daughters wedding coming up --Has increased protein --Continue Saxenda and phentermine Continue sympathomimetic (medication refilled). This patient 1) has no evidence of serious cardiovascular disease; 2) does not have serious psychiatric disease or a history of substance abuse; 3) has been informed about weight loss medications that are FDA approved for long-term use and told that these have been all documented to be safe and effective whereas phentermine has not; 4) does not demonstrate a clinically significant increase in pulse or blood pressure when taking phentermine; and 5) demonstrate significant weight loss while using the medication. Patient understands that all antiobesity medications are contraindicated in . Patient denies a history of glaucoma. Patient understands that long-term use of phentermine is considered off label use of this medication, however, that the endocrine Society and recent research supports that long-term use of phentermine does not appear to have detrimental health effects when used and the appropriate patient. In addition, a 2019 study published in an obesity journal on 116 patient's concluded that recommendations to limit phentermine to less than 3 months do not align with current concept of pharmacologic treatment of obesity , and that long-term phentermine users experience greater weight loss without apparent increases in cardiovascular risk . We reviewed potential side effects including insomnia, dry mouth, increased heart rate and blood pressure, increased anxiety. We reviewed reducing caffeine consumption while taking phentermine. especially if the patient is experience side effects. The potential risk and benefits of phentermine have been reviewed with the patient, and alternative treatment options were discussed. All questions were answered, and the patient wishes to move forward with this medication. Assessment & Plan (07/05/2021 9:57 AM EST): Patient's (There is no height or weight on file to calculate BMI.) indicates that they are obese (BMI >30) with health conditions that include dyslipidemias and insulin resistance . Weight is improving with treatment. BMI is is above average; BMI management plan is completed. We discussed low calorie, low carb based diet program, portion control and increasing exercise. --Pt has increase water, exercise and vegetables. --Next goal is 180. Weight loss goal of 1/2lb to 1 lb this month --Has been exercising regularly and feels great. Continue this great effort. --Pt got engaged over the holidays Continue sympathomimetic (medication refilled). This patient 1) has no evidence of serious cardiovascular disease; 2) does not have serious psychiatric disease or a history of substance abuse; 3) has been informed about weight loss medications that are FDA approved for long-term use and told that these have been all documented to be safe and effective whereas phentermine has not; 4) does not demonstrate a clinically significant increase in pulse or blood pressure when taking phentermine; and 5) demonstrate significant weight loss while using the medication. Patient understands that all antiobesity medications are contraindicated in . Patient denies a history of glaucoma. Patient understands that long-term use of phentermine is considered off label use of this medication, however, that the endocrine Society and recent research supports that long-term use of phentermine does not appear to have detrimental health effects when used and the appropriate patient. In addition, a 2019 study published in an obesity journal on 004 patient's concluded that recommendations to limit phentermine to less than 3 months do not align with current concept of pharmacologic treatment of obesity , and that long-term phentermine users experience greater weight loss without apparent increases in cardiovascular risk . We reviewed potential side effects including insomnia, dry mouth, increased heart rate and blood pressure, increased anxiety. We reviewed reducing caffeine consumption while taking phentermine. especially if the patient is experience side effects. The potential risk and benefits of phentermine have been reviewed with the patient, and alternative treatment options were discussed. All questions were answered, and the patient wishes to move forward with this medication. Assessment & Plan (05/24/2021 1:52 PM EST): Patient's (There is no height or weight on file to calculate BMI.) indicates that they are obese (BMI >30) with health conditions that include dyslipidemias and insulin resistance . Weight is improving with treatment. BMI is is above average; BMI management plan is completed. We discussed low calorie, low carb based diet program, portion control and increasing exercise. --Patient has been dealing with diarrhea over the past 3 weeks. Denies any pain with this and is being evaluated for possible lactose intolerance. Will be seeing PCP tomorrow. Advised this does not sound like pancreatitis but ordered a lab order to confirm. --She was unable to get previous labs ordered for thyroid last office visit those are still pending and will be collected at the same time as amylase and lipase. --Continue Saxenda and phentermine Assessment & Plan (04/21/2021 2:27 PM EDT): Patient's (Body mass index is 30.83 kg/m .) indicates that they are obese (BMI >30) with health conditions that include dyslipidemias and insulin resistance . Weight is improving with treatment. BMI is is above average; BMI management plan is completed. We discussed portion control and increasing exercise. --Continue Saxenda and phentermine --Goal of 4-6 lbs loss --Fasting labs ordered to be completed --Started with PT last month, 2-3 days weeks. First drop below 193 in months. Continue great effort --Goal of 180 for daughter's weeding 12/2021 Assessment & Plan (03/17/2021 11:46 AM EDT): Patient's (Body mass index is 31.15 kg/m .) indicates that they are obese (BMI >30) with health conditions that include dyslipidemias and insulin resistance . Weight is improving with treatment. BMI is is above average; BMI management plan is completed. --Goes to gym 3 times week. 1.5-2 miles. Looking into physical training --Explore introducing more vegetables. Encouraged her to come back with 1 or 2 that she has found that she has enjoyed over this next month --Still looking to reach a goal of 179 prior to her daughter's wedding in around a year --Continue phentermine and Saxenda. At last office visit we had switched from phendimetrazine to phentermine and she has noticed a slight increase of appetite for the first couple weeks. Continue for 1 month and consider switching back to phendimetrazine or Qsymia at next office visit if still having hunger issues Assessment & Plan (02/17/2021 10:09 AM EDT): --Discussed the 3-day washout and plan to email this to her an email she provided. --Labs to be provided from external source that she had done in December. States she will call them today and have them sent over --Refocus on food journaling making sure that she is totaling up calories for the day. She has been around the 1 95-1 93 range this entire summer. --Switch from phendimetrazine to phentermine --Daughter is getting in December 2021 and she is very focused on reaching her goal Continue sympathomimetic (medication refilled). This patient 1) has no evidence of serious cardiovascular disease; 2) does not have serious psychiatric disease or a history of substance abuse; 3) has been informed about weight loss medications that are FDA approved for long-term use and told that these have been all documented to be safe and effective whereas phentermine has not; 4) does not demonstrate a clinically significant increase in pulse or blood pressure when taking phentermine; and 5) demonstrate significant weight loss while using the medication. Patient understands that all antiobesity medications are contraindicated in . Patient denies a history of glaucoma. Patient understands that long-term use of phentermine is considered off label use of this medication, however, that the endocrine Society and recent research supports that long-term use of phentermine does not appear to have detrimental health effects when used and the appropriate patient. In addition, a 2019 study published in an obesity journal on 452 patient's concluded that recommendations to limit phentermine to less than 3 months do not align with current concept of pharmacologic treatment of obesity , and that long-term phentermine users experience greater weight loss without apparent increases in cardiovascular risk . We reviewed potential side effects including insomnia, dry mouth, increased heart rate and blood pressure, increased anxiety. We reviewed reducing caffeine consumption while taking phentermine. especially if the patient is experience side effects. The potential risk and benefits of phentermine have been reviewed with the patient, and alternative treatment options were discussed. All questions were answered, and the patient wishes to move forward with this medication. Assessment & Plan (01/20/2021 9:02 AM EDT): --Continue continue to keep protein high and reaching water goal --Continue to be very consistent with food journal and write down everything so she is able to keep an account --She really refocused last month and was able to see the scale go down. Focus on next foal to reach 189 in next couple months. Assessment & Plan (12/24/2020 9:32 AM EDT): --Continue to increase water --Start to incorporate resistance training --Continue Saxenda and phendimetrazine. Assessment & Plan (11/19/2020 9:30 AM EDT): --Refocus on mindful movement, goal of min 2x week to gym --Continue the phendimetrazine and Saxenda. --Focus on getting the protein in day. --Goal of 3-5 lbs this month. --Goal still to get into 180s and out of obease BMI Assessment & Plan (10/19/2020 9:50 AM EDT): --Gaol of 4-6 lb weight loss, will bring her into 180s. She did break the set point of 197 last month. Has not been in 180s since for 25 years ago. --Continue resiting diet sodas --Continue goal of walking 3 miles daily with weight training 2-3 times weeks. Assessment & Plan (09/07/2020 9:55 AM EDT): --Keep up great effort on tracking, has tracked 30/30 days this past month. --Keep up great effort goal on water goal and exercise. --Recently broke through her 200lb weight plateau, goal is 2-4 more pounds. --Increase checking weight from weekly to biweekly --Rx for phendimetrazine. Did not need refill on Saxenda currently. Assessment & Plan (08/10/2020 2:33 PM EST): --Angella broke through her 200lb goal last apt. Keep up great focus on food journal and exercise. --Continue focusing on getting protein throughout the day. Anxiety 07/04/2018 Resolved Problems Problem Noted Date Diagnosed Date Resolved Date History of obesity 03/10/2022 Dysmetabolic syndrome 07/04/20182023 Family History Medical History Relation Name Comments Heart disease Father Tom Yates triple bypass 20 years ago Hypertension Mother Breast cancer Neg Hx Ovarian cancer Neg Hx Relation Name Status Comments Father Tom Yates Mother Social History Tobacco Use Types Packs/Day Years Used Date Smoking Tobacco: Never Passive Smoke Exposure: Never Smokeless Tobacco: Never Tobacco Cessation:Counseling Given: Yes Alcohol Use Standard Drinks/Week Comments Yes 0 [...] on file Sexual Orientation Not on file Last Filed Vital Signs Vital Sign Reading Time Taken Comments Blood Pressure 118/74 08/21/2024 8:24 AM EST Pulse 68 07/24/2024 8:31 AM EST Temperature 36.5 C (97.7 F) 07/06/2020 9:06 AM EST Respiratory Rate 18 07/24/2024 8:31 AM EST Oxygen Saturation 98% 07/24/2024 8:31 AM EST Inhaled Oxygen Concentration - - Weight 82.1 kg (181 lb) 08/21/2024 8:24 AM EST Height 167.6 cm (5' 5.98 ) 08/21/2024 8:24 AM ES T Body Mass Index 29.23 08/21/2024 8:24 AM EST Plan of Treatment Health Maintenance Due Date Last Done Comments TDAP/TD VACCINES (1 - Tdap) 01/23/1987 PAP SMEAR 01/23/1989 COLOGUARD 01/23/2013 COLON CANCER SCREENING 5 YEA R SIGMOIDOSCOPY 01/23/2013 CT COLONOGRAPHY 01/23/2013 FECAL OCCULT BLOOD TEST 01/23/2013 FIT Testing (1 year) 01/23/2013 Pneumococcal Vaccine 50+ (1 of 1 - PCV) 01/23/2018 ZOSTER VACCINE (1 of 2) 01/23/2018 ANNUAL PHYSICAL 06/25/2018 HEPATITIS C SCREENING 06/25/2018 Annual Gynecologic Pelvic an d Breast Exam 04/21/2021 04/20/2020 MAMMOGRAM 03/06/2022 03/06/2020, 01/22/2014 INFLUENZA VACCINE 01/17/2025 LIPID PANEL 03/20/2025 03/20/2024, 06/20, 07/06/2020 COLONOSCOPY 01/29/2034 01/30/2024 COLORECTAL CANCER SCREENING 01/29/2034 Procedures Procedure Name Priority Date/Time Associated Diagnosis Comments LIPID PANEL Routine 03/20/2024 8:31 AM EDT Obesity (BMI 30-39.9) Hyperlipidemia, unspecified hyperlipidemia type MAMMO SCREENING DIGITAL TOMOSYNTHESIS BILATERAL W CAD Routine 03/06/2020 9:12 AM EDT Visit for screening mammogram from Last 3 Months or Most Recently Relevant to Health Maintenance Results * (ABNORMAL) Lipid Panel (03/20/2024 8:31 AM EDT) Total Cholesterol 184 0 - 200 mg/dL 03/20/2024 6:45 PM EDT [facility] Triglycerides 118 0 - 150 mg/dL 03/20/2024 6:45 PM EDT [facility] HDL Cholesterol 43 40 - 60 mg/dL 03/20/2024 6:45 PM EDT [facility] LDL Cholesterol 120(H) 0 - 100 mg/dL 03/20/2024 6:45 PM EDT [facility] VLDL Cholesterol 21 5 - 40 mg/dL 03/20/2024 6:45 PM EDT [facility] LDL/HDL Ratio 2.73 03/20/2024 6:45 PM EDT [facility] Blood Venipuncture / Unknown 03/20/2024 8:31 AM EDT 03/20/2024 8:41 AM EDT Narrative [facility] - 03/20/2024 6:45 PM EDT Cholesterol Reference Ranges (U.S. Department of Health and Human Services ATP III Classifications) Desirable <200 mg/dL Borderline High 200-239 mg/dL High Risk >240 mg/dL Triglyceride Reference Ranges (U.S. Department of Health and Human Services ATP III Classifications) Normal <150 mg/dL Borderline High 150-199 mg/dL High 200-499 mg/dL Very High >500 mg/dL HDL Reference Ranges (U.S. Department of Health and Human Services ATP III Classifications) Low <40 mg/dl (major risk factor for CHD) High >60 mg/dl ('negative' risk factor for CHD) LDL Reference Ranges (U.S. Department of Health and Human Services ATP III Classifications) Optimal <100 mg/dL Near Optimal 100-129 mg/dL Borderline High 130-159 mg/dL High 160-189 mg/dL Very High >189 mg/dL Christen Celeste APRN LAB BLOOD ORDERABLES Final Result [facility]
[address] [place] [address], * Mammo Screening Digital Tomosynthesis Bilateral With CAD (03/06/2020 9:12 AM EDT) Anatomical Region Laterality Modality Breast N/A Mammography 03/06/2020 12:2 3 PM EDT Impressions 03/06/2020 12:23 PM EDT Negative bilateral mammogram. RECOMMENDATION: Continue annual screening mammography. BI-RADS CATEGORY 1, NEGATIVE. CAD was utilized. The standard false-negative rate of mammography is between 10% and 25%. Complex patterns or increased breast density will markedly elevate the false-negative rate of mammography. A letter, in lay terminology, with the results of this exam will be mailed to the patient. This report was finalized on 03/06/2020 12:[address] Amrita Hernandez MD. Narrative 03/06/2020 12:23 PM EDT HISTORY: Screening Mammography. Low dose full field digital breast tomosynthesis imaging was performed with 2D and 3D acquisitions consisting of bilateral CC and MLO views. Examination is compared to prior examination dating back to 01/22/2014. Examination is read in conjunction with computer aided detection. FINDINGS: There are scattered areas of fibroglandular density. No suspicious masses, microcalcifications or areas of architectural distortion are present. 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
[2025-04-01 13:17] LABS: Free T4 (Free Thyroxine) 1.12 ng/dl (0.78-2.19)
[2025-04-01 13:31] LABS: Thyroid Stimulating Hormone 2.03 uIU/mL (0.465-4.68)
== END 2025-04-01 23:59 | disposition home or self-care (01) ==
LOC: LAB 11:50
PROVIDERS: PCP Internal Medicine; Visit Provider Student in an Organized Health Care Education/Training Program
DX: E03.9 Hypothyroidism, unspecified (principal)
CPT/HCPCS: 36415; 84439; 84443